=== PATIENT | female | born 1965 | race Caucasian/White ===

== ENCOUNTER 2016-09-21 11:56 | Emergency (ER) | payer OTHER ==
[2016-09-21 13:27] VITALS: BP 118/84
--- NOTE | 2016-09-21 13:36 | UC ---
Throat Pain/Nasal Vikas HPI - HPI Summary HPI Summary: complaint of nasal congestion and cough that started approx 1 week extremely sore throat cough is worsening coughing up purulent and felt feverish and chills yesterday intermittent headache denies ear pain, sinus pain not taking any medication for symptoms - History of Current Complaint Chief Complaint: UCGeneralIllness Stated Complaint: COLD COMPLAINT Time Seen by Provider: 09/21/16 13:28 Hx Obtained From: Patient Hx Last Menstrual Period: 1 WEEK AGO - Allergies/Home Medications Allergies/Adverse Reactions: Allergies Allergy/AdvReac Type Severity Reaction Status Date / Time Penicillin V Allergy Severe Rash Verified 07/08/15 16:00 PMH/Surg Hx/FS Hx/Imm Hx Previously Healthy: Yes Endocrine History Of: Denies: Diabetes, Thyroid Disease Cardiovascular History Of: Denies: Cardiac Disorders, Hypertension Respiratory History Of: Denies: COPD, Asthma GI/ History Of: Denies: Ulcer Cancer History Of: Denies: Breast Cancer - Surgical History Surgical History: Yes Surgery Procedure, Year, and Place: Broken nose repair as teenager - Family History Known Family History: Positive: None Negative: Cardiac Disease, Diabetes - Social History Occupation: Employed Full-time Lives: With Family Alcohol Use: Weekly Substance Use Type: None Smoking Status (MU): Light Every Day Tobacco Smoker Type: Cigarettes Amount Used/How Often: <1 PPD Cessation Counseling: Patient Advised to Stop Review of Systems Constitutional: Fever, Chills Skin: Negative Eyes: Negative ENT: Sore Throat, Nasal Discharge Respiratory: Cough Cardiovascular: Negative Gastrointestinal: Negative Genitourinary: Negative Motor: Negative Neurovascular: Negative Musculoskeletal: Negative Neurological: Headache Psychological: Negative All Other Systems Reviewed And Are Negative: Yes Physical Exam Triage Information Reviewed: Yes Appearance: No Pain Distress, Well-Nourished Vital Signs: Initial Vital Signs Temp 98.3 F 09/21/16 13:22 Pulse 68 09/21/16 13:22 Resp 16 09/21/16 13:22 BP 118/84 09/21/16 13:22 Pulse Ox 98 09/21/16 13:22 Vital Signs Reviewed: Yes Eyes: Positive: Conjunctiva Clear ENT: Positive: Pharyngeal erythema, Nasal congestion, Nasal drainage, TMs normal Neck: Positive: No Lymphadenopathy Respiratory: Positive: Lungs clear, Normal breath sounds, No respiratory distress, No accessory muscle use Cardiovascular: Positive: RRR, No Murmur, Pulses Normal Abdomen Description: Positive: Nontender, Soft Bowel Sounds: Positive: Present Musculoskeletal: Positive: No Edema Neurological: Positive: Alert Psychological Exam: Normal Skin Exam: Normal Throat Pain/Nasal Course/Dx - Course Course Of Treatment: exam completed. bronchitis- will treat with anitibitoics d /t smoking hx - Differential Dx/Diagnosis Differential Diagnosis/HQI/PQRI: Pharyngitis, Tonsillitis, Other Provider Diagnoses: bronchitis Discharge - Discharge Plan Condition: Stable Disposition: HOME Prescriptions: Azithromycin TAB* [Zithromax TAB (Z-PIOTR) 250 mg #6 tabs] 2 tab PO .TODAY, THEN 1 DAILY #1 piotr Patient Education Materials: Acute Bronchitis (ED), How to Stop Smoking (ED) Referrals: Marina Haddad MD [Primary Care Provider] - Additional Instructions: Please take antibiotic as directed Increase fluids and rest Take acetaminophen or ibuprofen for fever or pain Please review your discharge instructions. If your symptoms do not improve please call your primary care provider or return to urgent care.
== END 2016-09-21 13:44 | disposition home or self-care (01) ==
LOC: UCEAST 11:56
DX: J40 Bronchitis, not specified as acute or chronic (principal); F17.210 Nicotine dependence, cigarettes, uncomplicated; Z88.0 Allergy status to penicillin
CPT/HCPCS: 99212; G0463

== ENCOUNTER 2017-01-14 14:43 | Emergency (ER) | payer OTHER ==
--- NOTE | 2017-01-14 16:38 | UC ---
Headache HPI - History Of Current Complaint Chief Complaint: EDHeadache Stated Complaint: HEADACHE/FACE TINGLES Time Seen by Provider: 01/14/17 16:36 Hx Last Menstrual Period: 1 WEEK AGO Pain Intensity: 4 - Allergies/Home Medications Allergies/Adverse Reactions: Allergies Allergy/AdvReac Type Severity Reaction Status Date / Time Penicillin V Allergy Severe Rash Verified 07/08/15 16:00 PMH/Surg Hx/FS Hx/Imm Hx - Surgical History Surgical History: Yes Surgery Procedure, Year, and Place: Broken nose repair as teenager - Family History Known Family History: Positive: None Negative: Cardiac Disease, Diabetes - Social History Alcohol Use: Weekly Substance Use Type: None Smoking Status (MU): Light Every Day Tobacco Smoker Type: Cigarettes Amount Used/How Often: <1 PPD Physical Exam Vital Signs: Initial Vital Signs Temp 98.7 F 01/14/17 14:51 Pulse 90 01/14/17 14:51 Resp 17 01/14/17 14:51 BP 148/104 01/14/17 14:51 Pulse Ox 98 01/14/17 14:51
--- NOTE | 2017-01-14 17:03 | RAD ---
INDICATION: Dizziness COMPARISON: None TECHNIQUE: Noncontrast axial source images were acquired from the skull base to the vertex. FINDINGS: Ventricles/sulci: The ventricles and cisterns are normal in size and configuration for age. Brain parenchyma: There is no focal parenchymal finding, evidence of intracranial mass, or intracranial mass effect. Intracranial hemorrhage:None. Extra-axial spaces: There are no abnormal extra axial fluid collections or evidence of extra-axial mass. Calvarium: There is no calvarial fracture or other calvarial abnormality. Scalp: There is no evidence of scalp or extracalvarial soft tissue abnormality. Paranasal sinuses/mastoid: The paranasal sinuses and mastoid air cells are clear. Other: None. IMPRESSION: NEGATIVE EXAMINATION
[2017-01-14 17:27] LABS: Hematocrit 40 % (35-47); Hemoglobin 13.4 g/dl (12.0-16.0); Mean Corpuscular HGB Conc 33 g/dl (31-36); Mean Corpuscular Hemoglobin 32 pg (27-31); Mean Corpuscular Volume 97 fL (80-97); Mean Platelet Volume 8 um3 (7.4-10.4); Red Blood Count 4.14 10^6/ul (4.0-5.4); Red Cell Distribution Width 13 % (10.5-15); White Blood Count 6.9 10^3/ul (3.5-10.8)
--- NOTE | 2017-01-14 17:41 | ED ---
Headache - HPI Summary HPI Summary: Posterior headache that is stabbing throbbing, and radiates up over head waxing and waneing for 1 week, Seems to have been the worst ever today---noted to have a tingling sensation in both cheeks today - History Of Current Complaint Chief Complaint: EDHeadache Stated Complaint: HEADACHE/FACE TINGLES Time Seen by Provider: 01/14/17 16:36 Hx Obtained From: Patient Hx Last Menstrual Period: 1 WEEK AGO Onset/Duration: Gradual Onset, Still Present - waxing and waneing Initially Headache Was: "Worst Headache Ever" Currently Pain Is: Moderate Timing: Constant, Intermittent, Lasting: - with intermittent stabbing pain Character: Sharp - stabbing, Throbbing, Pressure Location of Headache: Occipital Aggravating Factor: Nothing Allevating Factors: Nothing - Allergies/Home Medications Allergies/Adverse Reactions: Allergies Allergy/AdvReac Type Severity Reaction Status Date / Time Penicillin V Allergy Severe Rash Verified 07/08/15 16:00 PMH/Surg Hx/FS Hx/Imm Hx Previously Healthy: No Endocrine/Hematology History: Denies: Hx Diabetes, Hx Thyroid Disease Cardiovascular History: Reports: Other Cardiovascular Problems/Disorders - Tachycardia March 2012, , full cardiac workup, --patient refuses betablo Denies: Hx Hypertension Respiratory History: Denies: Hx Asthma, Hx Chronic Obstructive Pulmonary Disease (COPD) GI History: Denies: Hx Ulcer - Cancer History Hx Chemotherapy: No Hx Radiation Therapy: No - Surgical History Surgery Procedure, Year, and Place: Broken nose repair as teenager Infectious Disease History: No Infectious Disease History: Denies: Hx Hepatitis, Hx Human Immunodeficiency Virus (HIV), Traveled Outside the [place] in Last 30 Days - Family History Known Family History: Positive: None Negative: Cardiac Disease, Diabetes - Social History Occupation: Employed Full-time Lives: With Family Alcohol Use: Weekly Substance Use Type: Reports: None Smoking Status (MU): Light Every Day Tobacco Smoker Type: Cigarettes Amount Used/How Often: <1 PPD Review of Systems Constitutional: Negative Eyes: Negative ENT: Negative Cardiovascular: Negative Respiratory: Negative Gastrointestinal: Negative Genitourinary: Negative Musculoskeletal: Negative Skin: Negative Neurological: Other Positive: Headache Psychological: Normal All Other Systems Reviewed And Are Negative: Yes Physical Exam Triage Information Reviewed: Yes Vital Signs On Initial Exam: Initial Vitals Temp Pulse Resp BP Pulse Ox 98.7 F 90 17 148/104 98 01/14/17 14:51 01/14/17 14:51 01/14/17 14:51 01/14/17 14:51 01/14/17 14:51 Vital Signs Reviewed: Yes Appearance: Positive: Well-Appearing, No Pain Distress, Well-Nourished Skin: Positive: Warm, Skin Color Reflects Adequate Perfusion Head/Face: Positive: Normal Head/Face Inspection, Scalp - erythema in occip.. Negative: Temporal Artery Tenderness Eyes: Positive: EOMI, DILAN, Conjunctiva Clear, Other: - fundascopic exam wnl ENT: Positive: Normal ENT inspection, Hearing grossly normal, Pharynx normal, TMs normal. Negative: Nasal congestion, Tonsillar swelling, Tonsillar exudate, Trismus, Muffled/hoarse voice, Dental tenderness Neck: Positive: Supple, Nontender, No Lymphadenopathy Respiratory/Lung Sounds: Positive: Clear to Auscultation, Breath Sounds Present Cardiovascular: Positive: Normal, RRR, Pulses are Symmetrical in both Upper and Lower Extremities, S1, S2 Abdomen Description: Positive: Nontender, No Organomegaly, Soft. Negative: CVA Tenderness (R), CVA Tenderness (L) Bowel Sounds: Positive: Present Musculoskeletal: Positive: Normal, Strength/ROM Intact Neurological: Positive: Normal, Sensory/Motor Intact, Normal Gait, [place] - WNL, Facial Symmetry, Speech Normal, Pronator Drift Present - negative. Negative: Focal Deficit @ Psychiatric: Positive: Normal, Affect/Mood Appropriate AVPU Assessment: Alert - [place] Coma Scale Best Eye Response: 4 - Spontaneous Best Motor Response: 6 - Obeys Commands Best Verbal Response: 5 - Oriented Coma Scale Total: 15 Diagnostics - Vital Signs Vital Signs Temp Pulse Resp BP Pulse Ox 01/14/17 15:17 99.5 F 68 13 143/83 96 01/14/17 14:51 98.7 F 90 17 148/104 98 - Laboratory Result Diagrams: 01/14/17 17:05 01/14/17 17:05 Lab Statement: Any lab studies that have been ordered have been reviewed, and results considered in the medical decision making process. - CT No standard instances CT Interpretation: No Acute Changes CT Interpretation Completed By: Radiologist - CT and CTA Negative Exam Re-Evaluation - Re-Evaluation First Eval Change: Improved - Discussed case with Dr. Liz---Plan for CTA and LP----Dr. Patel to do LP see supplemental progress note Second Eval Change: Improved - tolerated LP well, review plan and lab results with patient Headache Course/Dx - Course Assessment/Plan: ibuprofen, neurontin follow with neurology and or pcp return as needed - Diagnoses Differential Diagnosis/HQI/PQRI: Epidural Hematoma, Subdural Hematoma, Migraine , Subarachnoid Hemorrhage, Temporal Arteritis, Tension Headache, Other - Occipital neuralgic Provider Diagnoses: Headache Is Visit Related: No - Physician Notifications Discussed Care Of Patient With: Anali Liz Discharge - Discharge Plan Condition: Stable Disposition: HOME Prescriptions: Gabapentin CAP(*) [Neurontin 100 mg CAP(*)] 100 mg PO TID PRN #30 cap PRN Reason: head pain Patient Education Materials: Ibuprofen (By mouth), Gabapentin (By mouth), Acute Headache (ED) Referrals: Marina Haddad MD [Primary Care Provider] - 1 Week Anali Liz MD [Medical Doctor] - 1 Week
[2017-01-14 19:17] LABS: Albumin 4.5 g/dL (3.2-5.2); BUN/Creatinine Ratio 25.7 (8-20); Calcium 9.3 mg/dL (8.6-10.3); EGFR African American 114.4 (>60); EGFR Non-African American 88.9 (>60); Globulin 2.8 g/dL (2-4); Potassium 3.8 mmol/L (3.5-5.0); Total Bilirubin 0.4 mg/dL (0.2-1.0); Total Protein 7.3 g/dL (6.4-8.9)
[2017-01-14] MEDS ORDERED: Ibuprofen TAB* 600 MG PO ONE (19:22)
[2017-01-14] MEDS ORDERED: Iohexol 350* (CONTRAST) 500 ML MDV IV ONE (19:29)
--- NOTE | 2017-01-14 20:16 | RAD ---
INDICATION: Dizziness COMPARISON: CT brain same date TECHNIQUE: Axial source images were acquired with coronal and sagittal reconstructions. CT angiographic technique was utilized with injection of 60 mL Omnipaque 350. FINDINGS: Right carotid: The carotid artery at the skull base, carotid siphon, and carotid termination appear normal. Left carotid: The carotid artery at the skull base, carotid siphon, and carotid termination appear normal. Right middle and anterior cerebral arteries: There are no CT angiographic abnormalities of the middle or anterior cerebral arteries. Left middle and anterior cerebral arteries: There are no CT angiographic abnormalities of the middle or anterior cerebral arteries Right vertebral: The CT angiographic appearance of the visualized vertebral artery is normal. Left vertebral: The CT angiographic appearance of the visualized vertebral artery is normal. Basilar artery: The basilar artery and basilar tip appear normal. Posterior cerebral arteries: The distal distribution of the right and left posterior cerebral arteries is normal. [place]: The CT angiographic appearance of the [place] is normal. Source images show no focal brain parenchymal abnormalities or abnormal areas of enhancement. IMPRESSION: NORMAL STUDY. CPT II Codes: 3100F RS
[2017-01-14] MEDS ORDERED: NS 0.9% 1000 ML* 1,000 ML IV ONE (20:27)
--- NOTE | 2017-01-14 22:22 | ED ---
Progress - Progress Note Progress Note: PROCEDURE NOTE; I PERFORMED AN LP RISKS AND BENEFITS AND PROCEDURE EXPLAINED FOR INFORMED CONSENT STERILE PROCEDURE BETADINE PREP 1% LIDOCAINE FOUR 1ML SAMLES OF CLEAR CSF COLLECTED. PATIENT WILL LAY FLAT AND REST FOR 1 HOUR AFTER THE PROCEDURE. PATIENT TOLERATED PROCEDURE WELL. Course/Dx - Diagnoses Provider Diagnoses: Headache
[2017-01-14 22:37] LABS: BF RBC Count #1 0; BF RBC Count #2 0; BF WBC Count #1 1; BF WBC Count #2 1; Body Fluid Appearance Clear; Body Fluid WBC 1 /mcL; RBC counts within 6%? Yes; WBC counts within 15%? Yes
[2017-01-14 22:41] VITALS: BP 144/85
[2017-01-14 22:50] LABS: CSF Glucose 56 mg/dL (40-70)
[2017-01-14 23:11] LABS: Body Fluid Total Cells Counted 1
== END 2017-01-14 23:18 | disposition home or self-care (01) ==
LOC: ED 14:43
DX: R51 Headache (principal); Z88.0 Allergy status to penicillin; F17.210 Nicotine dependence, cigarettes, uncomplicated
CPT/HCPCS: 36415; 62270; 70450; 70496; 80053; 82945; 83605; 84157; 84484; 85025; 87070; 87205; 89051; 93005; 96360; 96374; 99283; A9270-GY; Q9967